=== PATIENT | female | born 1935 | race Caucasian/White ===

== ENCOUNTER 2017-02-26 12:08 | Day surgery (SDC) | payer MEDICARE ==
[~2017-02-26] VITALS: Ht 160 cm; Wt 58.5 kg
[~2017-02-26 12:08] MED LIST: BUDE3CAP PO; CALC600T12 PO; CHOL100045 PO; ESTR42.52 VG; LEVO125T2 PO; MULT-666 PO; OMEP20CA11 PO; Sodium Chloride LOK Flush 10 mL Syringe IV PRN; fentaNYL-PF 50 mCg/mL 2 mL Inj IVPUSH PRN
[2017-02-26 12:21] VITALS: BP 138/87; PULSE 73; RESP 16; O2SAT 96
[2017-02-26] MEDS: 0.9% Sodium Chloride 1,000 ML IV SCH ×3 (12:30→13:39)
[2017-02-26 13:42] VITALS: BP 124/75; PULSE 69; RESP 16; O2SAT 93
[2017-02-26 13:52] VITALS: BP 111/67; PULSE 67; RESP 16; O2SAT 92
[2017-02-26 14:04] VITALS: BP 110/59; PULSE 70; RESP 16; O2SAT 93
--- NOTE | 2017-02-26 14:34 | ENDO ---
[address] [address] ENDOSCOPY PROCEDURE PATIENT: ИВАН LEVY : 1935 MR#: [id number] ADMIT: 02/26/2017 JOB ID: [id number] DATE: 02/26/2017 PRIMARY PROVIDER: Reena Britton M.D. PROCEDURE: Esophagogastroscopy with balloon dilatation. INDICATIONS: An 81-year-old female with refractory severe inflammatory esophageal stricturing, the presence of Petersen esophagus. She has recently noticed some increased symptoms of dysphagia to pills. EQUIPMENT: GIF H 180 J. SEDATION: 1. 6 mg Versed. 2. 175 mcg fentanyl. COMPLICATIONS: None identified. PROCEDURAL INFORMATION: After the risks and benefits were explained, written and verbal informed consent was obtained. The patient was brought into the endoscopy suite and placed into the left lateral decubitus position. Sedation was achieved as above. The scope introduced into the mouth through the bite block, and advanced under direct visualization through the oropharynx, esophagus, and down into the proximal stomach. This was a very challenging examination and procedure time was quite prolonged. Twenty-two modifier is requested. Balloon dilatation was performed as below. The scope was then slowly withdrawn to carefully examine the mucosa after the dilatation. The patient tolerated the procedure reasonably well but became a little agitated near the end of the procedure. We, therefore, did not attempt to advance all the way down into the duodenum. FINDINGS: 1. Duodenum not seen. 2. Stomach: The proximal stomach appeared normal. 3. Esophagus: The patient had severe inflammatory lengthy stenosis from somewhere around [address] to the GE junction, which was at about somewhere in the neighborhood of 38 cm. This was characterized by white exudate linear inflammatory features and we simply could not advance the scope through this section without pre-dilating. All of that said, I did get a sense that the upper esophageal sphincter mechanism was quite snug and impeded easy passage of the endoscope. It was difficult to determine whether the force being required to push through was related to the stenosis or the tension through the upper esophageal sphincter mechanism. We used a 10-12 mm CRE balloon and dilated in multiple sections all throughout the distal esophagus up to 12 mm more distally. I was then able to get the scope to advance down into the stomach proper. There were appropriate mucosal rents but no sustained bleeding from the dilatation effect. ENDOSCOPIC DIAGNOSES: 1. Subtle sliding hiatal hernia, not mentioned above. 2. Short-segment Petersen's. Not mentioned above (we did not pursue biopsies today). 3. Inflammatory lengthy challenging esophageal stricturing status post balloon dilatation to 12 mm. RECOMMENDATIONS: 1. Continue reflux therapy with PPI considering the presence of the Petersen's. However, almost certainly the inflammatory process seen in the mid esophagus has nothing to do with reflux. 2. I have recommended the patient find a high CBD oil (100 mg CBD for every 2 mg THC) and take some of the oil by mouth in a small dropper form at least twice a day. 3. I would then like to repeat endoscopy with a 45 minute slot in approximately four months with anesthesia (suboptimal tolerance of conscious sedation today). 4. Repeat dilatation and also evaluate whether or not we have any improvement in the vicious chronic inflammatory process here.
== END 2017-02-26 23:59 ==
LOC: END 12:08
PROVIDERS: ATTEND Internal Medicine Gastroenterology
DX: K22.2 Esophageal obstruction (principal); K22.70 Barrett's esophagus without dysplasia; R47.02 Dysphasia; K90.0 Celiac disease
CPT/HCPCS: 43249; 99153; G0500; J7030